=== PATIENT | female | born 1990 | race Caucasian/White ===

== ENCOUNTER 2020-12-14 16:52 | Inpatient (IN) | payer OTHER ==
[~2020-12-14] VITALS: Ht 152.4 cm; Wt 67.1 kg
[~2020-12-14 16:52] MED LIST: IBUPROFEN600 MG PO; NORCO 5-325 TA1 EACH PO; ZOMIG5 MG PO
[2020-12-14 17:35] LABS: HEMOGLOBIN 11.9 gm/dl (12.3-15.3); RED BLOOD COUNT 4.17 M/UL (4.00-5.10); WHITE BLOOD COUNT 7.1 K/UL (4.5-11.0)
[2020-12-14] MEDS ORDERED: OMEPRAZOLE20 MG PO (20:36)
[2020-12-14] MEDS ORDERED: IRON325 M1 PO (20:37)
[2020-12-16 04:43] LABS: HEMOGLOBIN 11.1 gm/dl (12.3-15.3)
[2020-12-16] MEDS ORDERED: IBUPROFEN600 MG PO (11:31)
[2020-12-16] MEDS ORDERED: DOCUSATE SODIU100 MG PO (11:31)
[2020-12-16] MEDS ORDERED: HYDROCODON-ACE1 EAC4 PO (11:31)
== END 2020-12-16 16:01 | disposition home or self-care (01) | DRG 807 ==
LOC: GENOP 16:52 → OB 17:06
PROVIDERS: Obstetrics & Gynecology; ADMIT Obstetrics & Gynecology
PROC: 10E0XZZ Delivery of Products of Conception, External Approach (ICD-10-PCS; principal; 2020-12-15)
PROC: 0KQM0ZZ Repair Perineum Muscle, Open Approach (ICD-10-PCS; 2020-12-15)
PROC: 10907ZC Drainage of Amniotic Fluid, Therapeutic from Products of Conception, Via Natural or Artificial Opening (ICD-10-PCS; 2020-12-15)
PROC: 0U7C7ZZ Dilation of Cervix, Via Natural or Artificial Opening (ICD-10-PCS; 2020-12-15)
PROC: 3E02340 Introduction of Influenza Vaccine into Muscle, Percutaneous Approach (ICD-10-PCS; 2020-12-16)
PROC: 3E0234Z Introduction of Serum, Toxoid and Vaccine into Muscle, Percutaneous Approach (ICD-10-PCS; 2020-12-16)
DX: O99.62 Diseases of the digestive system complicating childbirth (principal); Z37.0 Single live birth; O69.81X0 Labor and delivery complicated by cord around neck, without compression, not applicable or unspecified; O70.1 Second degree perineal laceration during delivery; Z3A.39 39 weeks gestation of pregnancy; K21.9 Gastro-esophageal reflux disease without esophagitis; Z87.891 Personal history of nicotine dependence; Z23 Encounter for immunization
CPT/HCPCS: 36415; 51702; 81001; 82800; 85014; 85018; 85025; 90686; G0008; J2590; J3010; J7120